=== PATIENT | male | born 1945 | race Caucasian/White ===

== ENCOUNTER 2018-03-31 12:22 | Inpatient (IN) | payer OTHER ==
[~2018-03-31] VITALS: Ht 167.6 cm; Wt 76.0 kg
[2018-03-31 12:44] VITALS: Ht 167.6 cm; Wt 76.0 kg
[2018-03-31 14:51] LABS: CALCIUM 7.8 mg/dL (8.5-10.1); CARBON DIOXIDE 23.7 mmol/L (21-32); CHLORIDE SERUM 105 mmol/L (98-107); CREATININE SERUM 0.8 mg/dL (0.7-1.3); GLUCOSE SERUM 86 mg/dL (74-106); POTASSIUM SERUM 3.9 mmol/L (3.5-5.1); SODIUM SERUM 138 mmol/L (136-145)
[2018-03-31 14:52] LABS: BASOPHIL % 0.2 % (0-2); PLATELET COUNT 366 x10^3mcL (130-400)
[2018-03-31 14:56] LABS: ALKALINE PHOSPHATASE 72 U/L (46-116); ALT/SGPT 10 U/L (16-63); AST/SGOT 9 U/L (15-37); BILIRUBIN TOTAL 0.3 mg/dL (0.20-1.00); LIPASE 87 IU/L (73-393); TOTAL PROTEIN, SERUM 6.8 g/dL (6.4-8.2)
[2018-03-31 15:01] LABS: RED CELL DISTRIBUTION WIDTH 20.6 % (11.5-14.5)
[2018-03-31 15:16] LABS: rbc morphology (normal/abnorm) ABNORMAL (NORMAL)
[2018-03-31 15:19] LABS: burr cell (echinocyte) 1+; target cell (codocyte) 2+; tear drop cell (dacryocyte) 1+
[2018-03-31 15:20] LABS: ovalocyte/elliptocyte 2+; schistocyte (helmet cell) 1+
[2018-03-31 17:43] VITALS: BP 130/52
[2018-03-31 18:21] LABS: MAGNESIUM 2.3 mg/dL (1.8-2.4); PHOSPHOROUS 3.8 mg/dL (2.5-4.9)
[2018-03-31 18:26] LABS: CHOLESTEROL/HDL RATIO 2.5
[2018-03-31 18:36] LABS: T3 TOTAL 0.94 ng/mL
[2018-03-31 18:59] LABS: FREE T4 0.85 ng/dL (0.76-1.46); FREE THYROXINE INDEX 2.3 ug/dL (1.4-4.5); T4(THYROXINE) 6.7 ug/dL (4.7-13.3)
[2018-03-31 20:09] VITALS: BP 129/61
[2018-04-01 03:49] LABS: PLATELET COUNT 344 x10^3mcL (130-400)
[2018-04-01 04:04] LABS: burr cell (echinocyte) 1+; ovalocyte/elliptocyte 2+; schistocyte (helmet cell) 1+; target cell (codocyte) 1+; tear drop cell (dacryocyte) 1+
[2018-04-01 04:05] LABS: rbc morphology (normal/abnorm) ABNORMAL (NORMAL)
[2018-04-01 05:27] VITALS: BP 111/69
[2018-04-01 05:42] LABS: microscopic required? NO
[2018-04-01 05:45] LABS: urine erythrocyte NEGATIVE (NEGATIVE)
[2018-04-01 05:53] LABS: AMPHETAMINE QUAL UR NONE DETECTED (See below)
[2018-04-01 06:12] LABS: PLATELET COUNT 325 x10^3mcL (130-400)
[2018-04-01 06:28] LABS: CALCIUM 8.1 mg/dL (8.5-10.1); CARBON DIOXIDE 23.5 mmol/L (21-32); CHLORIDE SERUM 109 mmol/L (98-107); CREATININE SERUM 0.9 mg/dL (0.7-1.3); GLUCOSE SERUM 84 mg/dL (74-106); MAGNESIUM 2.2 mg/dL (1.8-2.4); PHOSPHOROUS 3.8 mg/dL (2.5-4.9); POTASSIUM SERUM 4.4 mmol/L (3.5-5.1); SODIUM SERUM 141 mmol/L (136-145)
[2018-04-01 06:53] LABS: IRON 88 ug/dL (65-170); TOTAL IRON BINDING CAPACITY 391 ug/dL (250-450)
[2018-04-01 07:27] LABS: RED CELL DISTRIBUTION WIDTH 30.9 % (11.5-14.5)
[2018-04-01 07:45] LABS: rbc morphology (normal/abnorm) ABNORMAL (NORMAL)
[2018-04-01 07:47] LABS: ovalocyte/elliptocyte 2+; target cell (codocyte) 1+
[2018-04-01 09:46] VITALS: BP 121/66
[2018-04-01 12:48] VITALS: BP 132/60
[2018-04-01 18:36] VITALS: BP 138/81
[2018-04-01 19:58] VITALS: BP 137/69
[2018-04-02 00:36] LABS: BASOPHIL % 1.3 % (0-2)
[2018-04-02 00:44] LABS: PLATELET COUNT 344 x10^3mcL (130-400)
[2018-04-02 01:02] LABS: rbc morphology (normal/abnorm) ABNORMAL (NORMAL)
[2018-04-02 04:59] VITALS: BP 120/57
[2018-04-02 07:22] LABS: CALCIUM 7.7 mg/dL (8.5-10.1); CARBON DIOXIDE 23.5 mmol/L (21-32); CHLORIDE SERUM 109 mmol/L (98-107); CREATININE SERUM 0.8 mg/dL (0.7-1.3); GLUCOSE SERUM 79 mg/dL (74-106); MAGNESIUM 2.3 mg/dL (1.8-2.4); PHOSPHOROUS 3.6 mg/dL (2.5-4.9); POTASSIUM SERUM 3.3 mmol/L (3.5-5.1); SODIUM SERUM 142 mmol/L (136-145)
[2018-04-02 07:55] LABS: BASOPHIL % 1.2 % (0-2); PLATELET COUNT 318 x10^3mcL (130-400)
[2018-04-02 07:56] LABS: RED CELL DISTRIBUTION WIDTH 35.2 % (11.5-14.5)
[2018-04-02 07:58] LABS: rbc morphology (normal/abnorm) ABNORMAL (NORMAL)
[2018-04-02 09:09] VITALS: BP 136/65
[2018-04-02 13:10] VITALS: BP 131/70
[2018-04-02 17:05] VITALS: BP 135/63
[2018-04-02 21:20] VITALS: BP 126/62
[2018-04-03 05:10] VITALS: BP 154/70
[2018-04-03 06:27] LABS: BASOPHIL % 1.2 % (0-2); PLATELET COUNT 286 x10^3mcL (130-400)
[2018-04-03 06:30] LABS: CALCIUM 8.6 mg/dL (8.5-10.1); CARBON DIOXIDE 24.2 mmol/L (21-32); CHLORIDE SERUM 108 mmol/L (98-107); CREATININE SERUM 0.8 mg/dL (0.7-1.3); GLUCOSE SERUM 82 mg/dL (74-106); POTASSIUM SERUM 3.8 mmol/L (3.5-5.1); SODIUM SERUM 141 mmol/L (136-145)
[2018-04-03 06:55] LABS: RED CELL DISTRIBUTION WIDTH 35.5 % (11.5-14.5)
[2018-04-03 08:37] VITALS: BP 113/54
[2018-04-03 09:02] LABS: rbc morphology (normal/abnorm) ABNORMAL (NORMAL)
[2018-04-03] MEDS ORDERED: FER300 PO (11:51)
[2018-04-03 12:44] VITALS: BP 113/54
[2018-04-03 13:06] VITALS: BP 115/57
== END 2018-04-03 17:45 | disposition home or self-care (01) | DRG 375 ==
LOC: ED 12:22 → DU 16:34
PROVIDERS: Emergency Medicine; Family Medicine; Internal Medicine Gastroenterology
PROC: 0DBP8ZX Excision of Rectum, Via Natural or Artificial Opening Endoscopic, Diagnostic (ICD-10-PCS; principal; 2018-04-02 10:30)
DX: C20 Malignant neoplasm of rectum (principal); E44.0 Moderate protein-calorie malnutrition; D62 Acute posthemorrhagic anemia; E83.51 Hypocalcemia; E78.5 Hyperlipidemia, unspecified; Z68.26 Body mass index [BMI] 26.0-26.9, adult; F17.210 Nicotine dependence, cigarettes, uncomplicated
CPT/HCPCS: 45378; 83880; 84439; J1200; J1610; J1885; J1940; J2250; J2310; J2916; J3010; J3490; J7030; J7040; J7050; P9016; Q0092; Q0163